=== PATIENT | male | born 1965 | race Caucasian/White ===

== ENCOUNTER 2016-12-19 11:27 | Day surgery (SDC) | payer OTHER ==
[~2016-12-19] VITALS: Ht 170.2 cm; Wt 93.0 kg
[2016-12-19] MEDS ORDERED: ZANTAC 150MG T150 MG PO (11:54)
[2016-12-19] MEDS ORDERED: SIMETHICONE80 MG PO (11:55)
[2016-12-19] MEDS ORDERED: LIPITOR20 MG PO (11:55)
[2016-12-19 12:06] VITALS: BP 134/93; PULSE 71; TEMP 97.6
[2016-12-19] MEDS ORDERED: EFFEXOR 3737.5 MG/TA PO (12:08)
[2016-12-19] MEDS ORDERED: MASON NATURAL2000 IU PO (12:09)
[2016-12-19] MEDS ORDERED: NASONEX SPRAY17 GM NS (12:09)
[2016-12-19] MEDS ORDERED: ALLEGRA 180MG180 MG PO (12:09)
[2016-12-19] MEDS ORDERED: ASPIRIN 81M81 MG/TA2 PO (12:09)
[2016-12-19 13:45] VITALS: BP 117/96; PULSE 79; TEMP 97
[2016-12-19 14:00] VITALS: BP 117/90; PULSE 77
[2016-12-19] MEDS ORDERED: PRILOSEC 20MG20 MG PO (14:00)
[2016-12-19] MEDS ORDERED: LEVBID0.375 MG (14:01)
[2016-12-19 14:15] VITALS: BP 115/92; PULSE 75
[2016-12-19 14:30] VITALS: BP 123/93; PULSE 72
== END 2016-12-19 14:35 | disposition home or self-care (01) ==
LOC: SDCO 11:27
DX: K21.0 Gastro-esophageal reflux disease with esophagitis (principal); K64.0 First degree hemorrhoids; K44.9 Diaphragmatic hernia without obstruction or gangrene; K29.30 Chronic superficial gastritis without bleeding; K25.9 Gastric ulcer, unspecified as acute or chronic, without hemorrhage or perforation; K29.80 Duodenitis without bleeding; K62.5 Hemorrhage of anus and rectum; E78.00 Pure hypercholesterolemia, unspecified; I10 Essential (primary) hypertension; K58.9 Irritable bowel syndrome, unspecified; E66.9 Obesity, unspecified; Z68.32 Body mass index [BMI] 32.0-32.9, adult; Z87.891 Personal history of nicotine dependence; Z82.49 Family history of ischemic heart disease and other diseases of the circulatory system
CPT/HCPCS: OP; J2250; J3010; J7030

== ENCOUNTER → 2020-08-19 | Outpatient (CLI) | payer OTHER ==
[~2020-08-19] MED LIST: ALLEGRA 180MG180 MG PO; ASPIRIN 81M81 MG/TA2 PO; EFFEXOR 3737.5 MG/TA PO; LEVBID0.375 MG; LEXAPRO 10MG10 MG PO; LIPITOR20 MG PO; MASON NATURAL2000 IU PO; NASONEX SPRAY17 GM NS; PRILOSEC 20MG20 MG PO; PRINIVIL5 MG PO; SIMETHICONE80 MG PO; ZANTAC 150MG T150 MG PO
[2020-08-19 09:59] VITALS: BP 122/82; PULSE 67
[2020-08-19 10:55] VITALS: BP 131/86; PULSE 73
== END ==
LOC: COL.RAD 09:45
DX: E04.1 Nontoxic single thyroid nodule (principal)

== ENCOUNTER → 2021-09-07 | Outpatient (CLI) | payer OTHER | LOC: COL.PUL 11:00 | DX: R06.02 Shortness of breath (principal); Z87.891 Personal history of nicotine dependence | CPT/HCPCS: J7674 ==